=== PATIENT | male | born 1990 | race Caucasian/White ===

== ENCOUNTER 2021-04-24 23:48 | Emergency (ER) | payer BC ==
[~2021-04-24] VITALS: Ht 188 cm; Wt 81.6 kg
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
--- NOTE | 2021-04-25 00:28 | NUR ---
xray at bedside
[2021-04-25] MEDS: IBUPROFEN 400 MG TABLET PO ONE (01:00)
[2021-04-25] MEDS ORDERED: HYDR-4303 PO (01:02)
[2021-04-25] MEDS ORDERED: IBUP-1958 PO (01:02)
[2021-04-25] MEDS ORDERED: IBUPROFEN 400 MG TABLET ONE (01:19)
--- NOTE | 2021-04-25 01:20 | NUR ---
Patient discharged to home in stable condition. Written and verbal after care instructions given. Patient verbalizes understanding of instruction. Pt ambulatory with a steady gait
[2021-04-25 01:35] VITALS: BP 136/89
== END 2021-04-25 01:20 | disposition home or self-care (01) ==
LOC: ER 23:56
DX: S40.012A Contusion of left shoulder, initial encounter (principal); V49.49XA Driver injured in collision with other motor vehicles in traffic accident, initial encounter; Y93.89 Activity, other specified; Y92.413 State road as the place of occurrence of the external cause; Y99.8 Other external cause status
CPT/HCPCS: 73030-TC